=== PATIENT | female | born 1985 | race African-American/Black ===

== ENCOUNTER 2023-06-26 10:27 | Inpatient (IN) ==
[2023-06-26] MEDS ORDERED: PENICILLIN G POTASSIUM 6 MU in DEXTROSE 5% 250 ML IV STA (10:35)
[2023-06-26] MEDS ORDERED: LIDOCAINE 1% LOCAL 20 ML VIAL INFIL PRN (10:35)
[2023-06-26] MEDS ORDERED: OXYTOCIN 30 UNITS/500 ML BAG IV PRN (10:35)
--- NOTE | 2023-06-26 11:05 | History & Physical Report ---
Date of Service June 26, 2023 Assessment & Plan (1) 37 weeks gestation of : Plan: Admit, routine labs, PIH labs Misoprostol 25 mcg sublingual every 4 hours Plan to AROM, and then start oxytocin for augmentation when patient progressed Epidural if patient requests Anticipate spontaneous vaginal delivery (2) Gestational [-induced] hypertension without significant proteinuria, complicating childbirth: Plan: Will monitor and treat if severe range blood pressures, PIH labs currently pending (3) Diet controlled gestational diabetes mellitus (GDM) in third trimester: (4) Problem with heart muscle during in third trimester: (5) Positive GBS test: Plan: Will start IV penicillin prior to AROM, or immediately after Srom, or when patient is an active labor Admission and Anticipated Discharge Date Admission Date: June 26, 2023 History of Present Illness Chief Complaint: IOL for GTN at 37 weeks Primary Care Provider: Ryan Stokes MD Patient is a pleasant 37-year-old G1, P0 at 37 weeks and 0 days here for induction of labor for gestational hypertension at term, as she was diagnosed at 36 weeks. Patient denies contractions, leaking of fluid or vaginal bleeding. Notes good movement. Denies headache, blurry vision, right upper quadrant or epigastric pain. Otherwise feeling well. has been complicated by advanced maternal age, gestational hypertension, GBS positive, IVF , diet controlled gestational diabetes, thalassemia, and abnormal echocardiogram with cardiology consult in . Previous ultrasounds earlier in noted marginal insertion of umbilical cord Allergies Allergy/AdvReac Type Severity Reaction Status Date / Time No Known Allergies Allergy Unverified 04/17/23 19:38 Home Medications Medication Instructions Recorded Confirmed Type aspirin 81 mg tablet See Rx Instructions .Route .COMPLEX 04/17/23 06/26/23 History ferrous sulfate 325 mg (65 mg See Rx Instructions .Route .COMPLEX 04/17/23 06/26/23 History iron) tablet (iron) omega-3 fatty acids-vitamin E 1 cap PO QAM 04/17/23 06/26/23 History 1,000 mg capsule vit no.95-ferrous 1 tab PO QPM 04/17/23 06/26/23 History fumarate 28 mg-folic acid 800 mcg tablet () progesterone micronized 200 mg 200 mg PO HS 04/17/23 06/26/23 History capsule Patient History Medical History Advanced maternal age, 1st Fibroid Gestational diabetes Diet Controlled Gestational hypertension Marginal insertion of umbilical cord affecting management of mother Marginal insertion of umbilical cord affecting management of mother in third trimester Murmur Abnormal ECHO. Referred to Cardiology. 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 Beliefs That Will Affect Care: None marital status: Grant Tapia Current Living Situation: Spouse current occupation: Homemaker Other Information That Helps Us Care for You: No Feels Safe at Home: Yes Safety Concerns: Feels Safe At This Time Diet: regular Diet Comment: Gestational Diabetes Assistive Devices: None 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 Review of Systems All systems reviewed & are unremarkable except as noted in HPI & below Physical Exam Constitutional: WD/WN, vitals as above Respiratory: normal respiratory effort, lungs clear to auscultation Cardiovascular: RRR, no murmur, no edema Gastrointestinal (Abdomen): normal bowel sounds, soft, nontender, no hepatosplenomegaly gravid Genitourinary: External genitalia: Normal Vagina: Normal Cervix: 0/0/-3, soft posterior Results & Data Vital Signs (Past 12 Hours) Vital Signs Temp Pulse Resp BP 06/26/23 11:00 81 137/93 06/26/23 10:50 102 H 139/98 06/26/23 10:40 115 H 129/92 06/26/23 10:39 36.6 C 20 Laboratory Results Laboratory Results WBC 5.57 K/ul (4.8-10.8) 06/26/23 11:15 RBC 4.53 M/uL (4.20-5.40) 06/26/23 11:15 Hgb 10.4 g/dl (12.0-16.0) L 06/26/23 11:15 Hct 31.7 % (37.0-47.0) L 06/26/23 11:15 MCV 70.0 fL (80.0-100.0) L 06/26/23 11:15 MCH 23.0 pg (25.0-34.0) L 06/26/23 11:15 MCHC 32.8 g/dL (32.0-36.0) 06/26/23 11:15 RDW Std Deviation 35.8 fL (36.4-46.3) L 06/26/23 11:15 RDW Coeff of Cordelia 14.5 % (11.5-14.5) 06/26/23 11:15 Plt Count 170 K/uL (130-400) 06/26/23 11:15 MPV 12.0 fL (9.4-12.4) 06/26/23 11:15 Monitoring External Monitor heart tracing: Baseline 140, moderate variability, no accelerations, 1 variable deceleration Tocodynamometer Irritability
[2023-06-26 11:48] LABS: Hematocrit (blood only) 31.7 % (37.0-47.0); Hemoglobin 10.4 g/dl (12.0-16.0); Mean Corpuscular Hgb Conc 32.8 g/dL (32.0-36.0); Platelet Count 170 K/uL (130-400); RDW Coefficient of Variation 14.5 % (11.5-14.5); RDW Standard Deviation 35.8 fL (36.4-46.3); Red Blood Count 4.53 M/uL (4.20-5.40); White Blood Count 5.57 K/ul (4.8-10.8)
[2023-06-26 11:59] LABS: Albumin Level 3.2 gm/dl (3.4-5.0); BUN Creatinine Ratio 16.2 (10-20); Bilirubin,Total 0.4 mg/dl (0.2-1.0); Calcium 9.1 mg/dl (8.6-10.3); Creatinine Clr Calc Pharmacy 127.1 ml/min; Est GFR (African American) 121.7 ml/min; Globulin 3.1 gm/dl (2.5-4.0); Potassium 4.2 mmol/L (3.5-5.1); Total Protein 6.3 gm/dl (6.0-8.3)
[2023-06-26] MEDS: miSOPROStoL 25 MCG TAB SL SCH ×3 (12:20→20:03)
[2023-06-26 12:33] LABS: Total Protein Urine Random 13.6 mg/dl (0-11.9)
[2023-06-26 12:38] LABS: Protein Creatinine Ratio Urine 0.1 (0-0.2)
[2023-06-26] MEDS ORDERED: PENICILLIN G POTASSIUM 3 MU in DEXTROSE 5% 100 ML IV PRN (13:36)
--- NOTE | 2023-06-26 20:49 | Obstetrical Progress Note ---
Date of Service June 26, 2023 Assessment & Plan (1) 37 weeks gestation of : Plan: Status post 3 doses of misoprostol 25 mcg sublingual Continue every 4 hours Epidural if patient request Anticipate spontaneous vaginal delivery (2) Gestational [-induced] hypertension without significant proteinuria, complicating childbirth: Plan: PIH labs normal on admission Last blood pressure 126/93 (3) Diet controlled gestational diabetes mellitus (GDM) in third trimester: Plan: Checks every 2 hours (4) Positive GBS test: Plan: Plan to start penicillin G when in active labor or prior to AROM Admission and Anticipated Discharge Date Admission Date: June 26, 2023 Subjective Patient comfortable in bed, was able to eat dinner. Notes more cramping. No other complaints at this time Physical Exam Genitourinary: heart tracing: Baseline 140, moderate variability, positive accelerations, variable deceleration Tocometer: Contractions every 4 to 5 minutes Cervix: Outer os 3 cm, inner os 0/0/-3 Results & Data Vital Signs (Past 12 Hours) Vital Signs Temp Pulse Resp BP 06/26/23 19:12 37.0 C 18 06/26/23 19:15 84 126/93 06/26/23 18:41 93 H 126/81 06/26/23 16:03 79 130/91 06/26/23 14:24 36.6 C 77 16 149/88 H 06/26/23 11:00 81 137/93 06/26/23 10:50 102 H 139/98 06/26/23 10:40 115 H 129/92 06/26/23 10:39 36.6 C 20
[2023-06-27] MEDS: miSOPROStoL 25 MCG TAB SL SCH ×3 (04:19→16:43)
[2023-06-27] MEDS ORDERED: BUTORPHANOL TARTRATE 1 MG/ML VIAL IV ONE (05:31)
[2023-06-27] MEDS ORDERED: PENICILLIN G POTASSIUM 6 MU in DEXTROSE 5% 250 ML IV STA (05:46)
[2023-06-27] MEDS: LACTATED RINGER'S 1,000 ML IV PRN ×2 (05:50→20:59)
--- NOTE | 2023-06-27 06:56 | Obstetrical Progress Note ---
Date of Service June 27, 2023 Assessment & Plan (1) 37 weeks gestation of : Plan: Status post 4 doses of misoprostol 25 mcg sublingual Epidural if patient request Anticipate spontaneous vaginal delivery (2) Gestational [-induced] hypertension without significant proteinuria, complicating childbirth: Plan: PIH labs normal on admission Last blood pressure 130/76 (3) Diet controlled gestational diabetes mellitus (GDM) in third trimester: Plan: Checks every 2 hours (4) Positive GBS test: Plan: Patient currently started on IV penicillin for GBS prophylaxis Admission and Anticipated Discharge Date Admission Date: June 26, 2023 Subjective Patient is resting comfortably in bed at this time, after receiving IV Stadol Physical Exam Genitourinary: heart tracing: Baseline 140, minimal to moderate variability, positive accelerations, no decelerations, category 1 tracing Tocometer: Contractions every 2 to 5 minutes Cervix: 2/80/-2 checked by RN at 530 Results & Data Vital Signs (Past 12 Hours) Vital Signs Temp Pulse Resp BP Pulse Ox 06/26/23 19:12 37.0 C 06/27/23 06:49 68 97 06/27/23 06:44 76 99 06/27/23 06:39 79 99 06/27/23 06:34 69 97 06/27/23 06:29 70 96 06/27/23 06:24 78 97 06/27/23 06:19 75 97 06/27/23 06:14 73 97 06/27/23 06:09 70 96 06/27/23 06:04 79 98 06/27/23 05:59 80 97 06/27/23 05:54 91 H 98 06/27/23 05:49 84 98 06/27/23 05:16 76 130/76 06/27/23 04:02 85 136/94 06/27/23 02:00 06/27/23 02:00 37.1 C 06/27/23 02:02 87 136/91 06/26/23 23:30 18 06/26/23 23:30 37.1 C 06/26/23 23:20 84 135/89 06/26/23 21:06 93 H 136/90 06/26/23 19:15 84 126/93
--- NOTE | 2023-06-27 09:09 | Obstetrical Progress Note ---
Date of Service June 27, 2023 Assessment & Plan (1) 37 weeks gestation of : (2) Diet controlled gestational diabetes mellitus (GDM) in third trimester: (3) Gestational [-induced] hypertension without significant proteinuria, complicating childbirth: Plan: Date of Service June 27, 2023 Assessment & Plan (1) 37 weeks gestation of : Plan: Status post 4 doses of misoprostol 25 mcg sublingual Epidural if patient request Anticipate spontaneous vaginal delivery (2) Gestational [-induced] hypertension without significant proteinuria, complicating childbirth: Plan: PIH labs normal on admission Last blood pressure 130/76 (3) Diet controlled gestational diabetes mellitus (GDM) in third trimester: Plan: Checks every 2 hours (4) Positive GBS test: Plan: Patient currently started on IV penicillin for GBS prophylaxis Admission and Anticipated Discharge Date Admission Date: June 26, 2023 Subjective Patient is resting comfortably in bed at this time, after receiving IV Stadol Physical Exam Genitourinary: heart tracing: Baseline 140, good variability, positive accelerations, no decelerations, category 1 tracing Tocometer: Contractions every 2 to 5 minutes Cervix: 480/-1 (4) AMA (advanced maternal age) primigravida 35+: (5) Positive GBS test: Admission and Anticipated Discharge Date Admission Date: June 26, 2023 Supervising Physician Co-Signing Physician Notes Dr. Carisa Rascon MD Subjective routine check Physical Exam Constitutional: WD/WN, vitals as above Results & Data Vital Signs (Past 12 Hours) Vital Signs Temp Pulse Resp BP Pulse Ox 06/27/23 08:58 93 H 143/91 H 06/27/23 07:09 18 06/27/23 07:09 36.9 C 18 06/27/23 07:06 81 136/86 06/27/23 07:04 84 98 06/27/23 06:59 92 H 100 06/27/23 06:54 74 99 06/27/23 06:49 68 97 06/27/23 06:44 76 99 06/27/23 06:39 79 99 06/27/23 06:34 69 97 06/27/23 06:29 70 96 06/27/23 06:24 78 97 06/27/23 06:19 75 97 06/27/23 06:14 73 97 06/27/23 06:09 70 96 06/27/23 06:04 79 98 06/27/23 05:59 80 97 06/27/23 05:54 91 H 98 06/27/23 05:49 84 98 06/27/23 05:16 76 130/76 06/27/23 04:02 85 136/94 06/27/23 02:00 16 06/27/23 02:00 37.1 C 16 06/27/23 02:02 87 136/91 06/26/23 23:30 18 06/26/23 23:30 37.1 C 18 06/26/23 23:20 84 135/89
[2023-06-27] MEDS: PENICILLIN G POTASSIUM 3 MU in DEXTROSE 5% 100 ML IV PRN ×4 (10:04→22:43)
[2023-06-27] MEDS ORDERED: BUPIVACAINE 0.25% PF 30 ML VIAL ONE (14:28)
[2023-06-27] MEDS ORDERED: ePHEDrine sulfate 50 MG/ML AMP ONE (14:28)
[2023-06-27] MEDS ORDERED: LIDOCAINE 2%/EPINEPHRINE 1:200,000 20 ML PF ONE (14:28)
[2023-06-27] MEDS ORDERED: fentaNYL citrate PF 100 MCG/2 ML VIAL ONE (14:28)
[2023-06-27] MEDS ORDERED: SODIUM CHLORIDE 0.9% PF INJ 10 ML VIAL ONE (14:28)
[2023-06-27] MEDS ORDERED: fentaNYL 2MCG/ML ROPIVACAINE 1.25MG/ML 100 ML BAG EPI ONE (14:29)
[2023-06-27] MEDS ORDERED: NALOXONE HCL 1 MG in SODIUM CHLORIDE 0.9% 1000ML 1,000 ML IV PRN (14:39)
[2023-06-27] MEDS ORDERED: SODIUM CHLORIDE 0.9% PF INJ 10 ML VIAL EPI STA (14:39)
[2023-06-27] MEDS ORDERED: fentaNYL citrate PF 100 MCG/2 ML VIAL EPI STA (14:39)
[2023-06-27] MEDS ORDERED: fentaNYL citrate PF 100 MCG/2 ML VIAL EPI PRN (14:39)
[2023-06-27] MEDS ORDERED: ePHEDrine sulfate 50 MG/ML AMP IV PRN (14:39)
[2023-06-27] MEDS ORDERED: LIDOCAINE 2%/EPINEPHRINE 1:200,000 20 ML PF EPI STA (14:39)
[2023-06-27] MEDS ORDERED: fentaNYL 2MCG/ML ROPIVACAINE 1.25MG/ML 100 ML BAG EPI PRN (14:39)
[2023-06-27] MEDS ORDERED: SODIUM CHLORIDE 0.9% PF INJ 10 ML VIAL EPI PRN (14:39)
[2023-06-27] MEDS ORDERED: diphenhydrAMINE 50 MG/ML VIAL IV PRN (14:39)
[2023-06-27] MEDS ORDERED: NALOXONE HCL 0.4 MG/1 ML VIAL/CARP IV PRN (14:39)
[2023-06-27] MEDS ORDERED: NALBUPHINE HCL INJ 10 MG/ML AMP IV PRN (14:39)
[2023-06-27] MEDS ORDERED: BUPIVACAINE 0.25% PF 30 ML VIAL EPI STA (14:39)
[2023-06-27] MEDS ORDERED: LIDOCAINE 2% MPF LOCAL 5 ML VIAL EPI PRN (14:39)
[2023-06-27] MEDS ORDERED: BUPIVACAINE 0.25% PF 30 ML VIAL EPI PRN (14:39)
[2023-06-27] MEDS ORDERED: ROPIVACAINE 0.5% PF 5 MG/ML 20 ML VIAL EPI PRN (14:39)
[2023-06-27] MEDS ORDERED: ONDANSETRON INJ 2 MG/ML 2 ML VIAL IV PRN (14:39)
--- NOTE | 2023-06-27 14:41 | Anesthesiology Consultation ---
Date of Service June 27, 2023 Assessment & Plan (1) Encounter for pre-operative examination: Chart Review Chart Review: Patient NOT seen in Pre Admission Testing and Acceptable Risk for Labor Epidural Consults Requested none History Height/Weight Height: 5 ft 8 in Weight: 93.894 kg Allergies Allergy/AdvReac Type Severity Reaction Status Date / Time No Known Allergies Allergy Unverified 04/17/23 19:38 Medications Home Medications Medication Instructions Recorded Confirmed Last Taken aspirin 81 mg tablet See Rx Instructions .Route .COMPLEX 04/17/23 06/26/23 06/26/23 ferrous sulfate 325 mg (65 mg See Rx Instructions .Route .COMPLEX 04/17/23 06/26/23 06/25/23 iron) tablet (iron) omega-3 fatty acids-vitamin E 1 cap PO QAM 04/17/23 06/26/23 06/25/23 1,000 mg capsule vit no.95-ferrous 1 tab PO QPM 04/17/23 06/26/23 06/25/23 fumarate 28 mg-folic acid 800 mcg tablet () progesterone micronized 200 mg 200 mg PO HS 04/17/23 06/26/23 06/24/23 capsule Active Medications Generic Name Dose Route Start Last Admin Trade Name Freq PRN Reason Stop Dose Admin Lactated Ringer's 1,000 mls @ 125 mls/hr 06/26/23 10:35 06/27/23 14:25 Lr IV 06/28/23 10:34 999 mls/hr .Q8H PRN Infusion L&D Protocol Protocol Penicillin G Potassium 3 mu/ 106 mls @ 100 mls/hr 06/27/23 05:46 06/27/23 14:22 Dextrose IV 07/07/23 05:45 100 mls/hr Q4H PRN Administration GBS(+) Until Delivery Misoprostol 25 mcg 06/26/23 11:05 06/27/23 04:19 Misoprostol 25 Mcg Tab SL 07/26/23 11:04 25 mcg Q4 JAZMIN Administration Past Medical History Medical History (Updated 06/27/23 @ 14:41 by Adrien Stanford MD) Advanced maternal age, 1st Encounter for pre-operative examination Fibroid Gestational diabetes Diet Controlled Gestational hypertension Marginal insertion of umbilical cord affecting management of mother Marginal insertion of umbilical cord affecting management of mother in third trimester Murmur Abnormal ECHO. Referred to Cardiology. Exercise / Class Metabolic Activity II 4-5 Yardwork/Stairs/Walk up hill Past Family History Family History Father Myocardial infarction Past Surgical History Surgical History History of wisdom tooth extraction Hx of tonsillectomy Social History Smoking Status: Never smoker Hx Alcohol Use: No Hx Substance Use: No Physical Exam Vital Signs Last Vital Signs Temp 36.9 C 06/27/23 13:41 Pulse 111 H 06/27/23 15:10 Resp 18 06/27/23 13:41 BP 128/101 H 06/27/23 15:10 Pulse Ox 100 06/27/23 15:06 Testing Laboratory Results 06/26/23 11:15 06/26/23 11:15 06/27/23 06/27/23 06/27/23 13:11 12:22 08:16 POC Glucose 104 H 69 L* 83 06/27/23 04:03 POC Glucose 86
[2023-06-27] MEDS ORDERED: OXYTOCIN 30 UNITS/500 ML BAG IV PRN (14:58)
[2023-06-27] MEDS ORDERED: NURSING L&D Epidural Breakthrough Pain Update ONE (23:40)
--- NOTE | 2023-06-28 00:36 | Anesthesia Procedure Note ---
Date of Service June 28, 2023 Anesthesia Epidural Re-Dose Vital Signs Temp Pulse Resp BP Pulse Ox 36.5 C 104 H 20 133/85 100 06/27/23 23:00 06/28/23 00:31 06/28/23 00:00 06/28/23 00:31 06/28/23 00:31 Notes Pain Intensity: 9 Dilatation (cm): 8.0 Effacement (%): 100 After Epidural Re-Dose Mental Status: alert / awake / arousable and participated in evaluation Pain: adequately controlled Airway Patency, RR, SpO2: stable & adequate BP & HR: stable & adequate Additional Notes: gave 4ml 2% lido with epi mixed with 4ml of 0.5% ropivicaine in divided doses. vss. pain much improved.
[2023-06-28] MEDS: PENICILLIN G POTASSIUM 3 MU in DEXTROSE 5% 100 ML IV PRN (03:58)
[2023-06-28] MEDS ORDERED: BENZOCAINE 20% SPRY 85 APPLN/85 GM CAN EXT PRN (05:41)
[2023-06-28] MEDS ORDERED: DIPHTHERIA/TETANUS/PERTUSSIS Vaccine (Tdap, Age 7+yrs) 0.5mL SYR/VL IM ONE (05:41)
[2023-06-28] MEDS ORDERED: HYDROCORTISONE ACETATE 25 MG SUPP PR PRN (05:41)
[2023-06-28] MEDS ORDERED: OXYTOCIN 30 UNITS/500 ML BAG IV PRN (05:41)
--- NOTE | 2023-06-28 05:50 | Post Operative Brief Note ---
Immediate Post Op Note v1 Date of Surgery June 28, 2023 I identified the patient and participated in the time-out.: Yes Procedure pt fully dilated and pushing, placed in dorsal lithotomy position, prepped and draped in usual fashion, pt pushed for 20 min, delivered alive viable male in THANG position, with nuchal cord x 1 , reduced, placed the on the mothers abdomen, cord clamped and cut by the FOB. right labial laceration and second degree vaginal lacerations noted, repaired with 2.0 vicryl. placenta delivered spoantaenulsy an complete. IV Pitocin started. APGARS: 8, 9 at 1 and 5 min Blood loss: 350 cc delivery time; 5: 18 am, placenta delivered: 5: 20 am Surgeon Kecia Rascon MD Electric Deicer Inspector migue nurse Estimated Blood Loss 350 Findings Consistent with Post-Op Diagnosis Complications none Disposition Accompanied Patient To Recovery: No Disposition: L&D
--- NOTE | 2023-06-28 07:24 | Anesthesia Procedure Note ---
Date of Service June 28, 2023 Anesthesia Post Epidural Note Vital Signs Vital Signs: Temp Pulse Resp BP Pulse Ox 98.2 F 110 H 18 139/83 100 06/28/23 03:00 06/28/23 07:08 06/28/23 06:35 06/28/23 07:08 06/28/23 05:31 Pain Intensity Bilateral Abdomen: Pain Intensity: 9 Notes Mental Status: alert / awake / arousable and participated in evaluation Nausea / Vomiting: adequately controlled Pain: adequately controlled Airway Patency, RR, SpO2: stable & adequate BP & HR: stable & adequate Hydration State: stable & adequate Neuraxial Anesthesia: was administered and sensory block is resolving Anesthetic Complications: no major complications apparent and Pt Satisfied with anesthetic care Epidural: Removed without complications and With tip intact
[2023-06-28] MEDS: PRENATAL VITAMIN 1 TAB PO SCH (08:01)
[2023-06-28] MEDS: IBUPROFEN 600 MG TAB PO PRN ×3 (08:01→20:22)
[2023-06-28] MEDS: DOCUSATE SODIUM 100 MG CAP PO SCH ×2 (08:02→20:23)
[2023-06-29] MEDS: IBUPROFEN 600 MG TAB PO PRN ×3 (03:01→20:41)
[2023-06-29 06:22] LABS: Hematocrit (blood only) 22.4 % (37.0-47.0); Hemoglobin 7.7 g/dl (12.0-16.0); Mean Corpuscular Hemoglobin 23.8 pg (25.0-34.0); Mean Corpuscular Hgb Conc 34.4 g/dL (32.0-36.0); Mean Corpuscular Volume 69.1 fL (80.0-100.0); Mean Platelet Volume 12.6 fL (9.4-12.4); Platelet Count 171 K/uL (130-400); RDW Standard Deviation 35.1 fL (36.4-46.3); Red Blood Count 3.24 M/uL (4.20-5.40); White Blood Count 11.46 K/ul (4.8-10.8)
[2023-06-29] MEDS: DOCUSATE SODIUM 100 MG CAP PO SCH ×2 (08:01→20:41)
[2023-06-29] MEDS: PRENATAL VITAMIN 1 TAB PO SCH (08:01)
--- NOTE | 2023-06-29 08:18 | Obstetrical Progress Note ---
Date of Service June 29, 2023 Assessment & Plan (1) 37 weeks gestation of : Continue routine PP coarse H/H 7.7/22.4 IV iron today Repeat tomorrow, if <7 or symptomatic will transfuse pRBCs Anticipate d/c home tomorrow if doing well (2) Diet controlled gestational diabetes mellitus (GDM) in third trimester: (3) Gestational [-induced] hypertension without significant proteinuria, complicating childbirth: Last BP 106/68 BP check in 1 week in clinic Subjective Ambulation: ambulating normally Voiding: no voiding problems Passing Gas:: Yes Diet Tolerance:: regular diet Lochia:: Moderate Feeding Type:: breast feeding Current Pain Level(1-10): 0 Doing well, no issues. Had two small clots this AM. States she "passed out" going to toilet yesterday. Sriram any SOB, chest pain, dizziness at this time Physical Exam Constitutional WD/WN, vitals as above Respiratory normal respiratory effort, lungs clear to auscultation Cardiovascular RRR, no murmur, no edema Gastrointestinal (Abdomen) normal bowel sounds, soft, nontender, no hepatosplenomegaly Fundus below U Results & Data Vital Signs (Past 12 Hours) Vital Signs Temp Pulse Resp BP Pulse Ox O2 Del Method 06/29/23 02:56 36.7 C 89 18 106/68 98 Room Air 06/28/23 23:14 36.9 C 79 18 131/87 99 Room Air 06/28/23 21:30 149/88 H 06/28/23 20:30 36.5 C 82 18 177/107 H Laboratory Results Laboratory Results WBC 11.46 K/ul (4.8-10.8) H 06/29/23 05:59 RBC 3.24 M/uL (4.20-5.40) L 06/29/23 05:59 Hgb 7.7 g/dl (12.0-16.0) L 06/29/23 05:59 Hct 22.4 % (37.0-47.0) L 06/29/23 05:59 MCV 69.1 fL (80.0-100.0) L 06/29/23 05:59 MCH 23.8 pg (25.0-34.0) L 06/29/23 05:59 MCHC 34.4 g/dL (32.0-36.0) 06/29/23 05:59 RDW Std Deviation 35.1 fL (36.4-46.3) L 06/29/23 05:59 RDW Coeff of Cordelia 14.0 % (11.5-14.5) 06/29/23 05:59 Plt Count 171 K/uL (130-400) 06/29/23 05:59 MPV 12.6 fL (9.4-12.4) H 06/29/23 05:59 Sodium 135 mmol/L (136-145) L 06/26/23 11:15 Potassium 4.2 mmol/L (3.5-5.1) 06/26/23 11:15 Chloride 106 mmol/L (98-107) 06/26/23 11:15 Carbon Dioxide 22 mmol/L (21-32) 06/26/23 11:15 Anion Gap 7 (3-11) 06/26/23 11:15 BUN 12 mg/dl (6-23) 06/26/23 11:15 Creatinine 0.74 mg/dl (0.6-1.2) 06/26/23 11:15 Est Cr Clr Drug Dosing 127.1 ml/min 06/26/23 11:15 Est GFR ( Amer) 121.7 ml/min 06/26/23 11:15 Est GFR (Non-Af Amer) 105.0 ml/min 06/26/23 11:15 BUN/Creatinine Ratio 16.2 (10-20) 06/26/23 11:15 Glucose 93 mg/dl (70-99(Fasting)) 06/26/23 11:15 POC Glucose 82 mg/dl (70-99) 06/28/23 01:14 Calcium 9.1 mg/dl (8.6-10.3) 06/26/23 11:15 Total Bilirubin 0.4 mg/dl (0.2-1.0) 06/26/23 11:15 AST 35 U/L (13-39) 06/26/23 11:15 ALT 53 U/L (7-52) H 06/26/23 11:15 Alkaline Phosphatase 148 U/L (34-104) H 06/26/23 11:15 Total Protein 6.3 gm/dl (6.0-8.3) 06/26/23 11:15 Albumin 3.2 gm/dl (3.4-5.0) L 06/26/23 11:15 Globulin 3.1 gm/dl (2.5-4.0) 06/26/23 11:15 Albumin/Globulin Ratio 1.0 (0.9-2) 06/26/23 11:15 Ur Random Creatinine 95.0 mg/dl 06/26/23 11:12 U Random Total Protein 13.6 mg/dl (0-11.9) H 06/26/23 11:12 Protein/Creatinin Ratio 0.1 (0-0.2) 06/26/23 11:12 RPR Nonreactive (Nonreactive) 06/26/23 11:15 Blood Type A Positive 06/26/23 11:15 Antibody Screen NEGATIVE 06/26/23 11:15
[2023-06-29] MEDS ORDERED: IRON SUCROSE 300 MG in SODIUM CHLORIDE 0.9% 250 ML IV ONE (08:30)
[2023-06-29] MEDS ORDERED: bisacodyL 5 MG TABEC PO SCH (20:00)
[2023-06-30] MEDS ORDERED: bisacodyL 10 MG SUPP PR PRN (05:41)
[2023-06-30 07:11] LABS: Hematocrit (blood only) 19.7 % (37.0-47.0); Hemoglobin 6.7 g/dl (12.0-16.0)
[2023-06-30] MEDS ORDERED: SODIUM CHLORIDE 0.9% 250 ML IV PRN (07:14)
--- NOTE | 2023-06-30 07:51 | Obstetrical Progress Note ---
Date of Service June 30, 2023 Assessment & Plan (1) Anemia affecting first : Patient's status post 1 dose of IV iron yesterday Hemoglobin this morning 6.7, meets criteria for blood transfusion Blood consents were signed in the patient's room, she is agreeable We will give 1 unit of packed red blood cells, repeat hemoglobin 4 hours later Patient unsure if she wants to go home today versus tomorrow. (2) Normal course: Continue routine care Subjective Ambulation: ambulating normally Voiding: no voiding problems Passing Gas:: Yes Diet Tolerance:: regular diet Lochia:: Small Feeding Type:: breast feeding Current Pain Level(1-10): 0 Resting comfortably in bed at this time, no complaints Informed of critical hemoglobin this morning of 6.7 Physical Exam Constitutional WD/WN, vitals as above Respiratory normal respiratory effort, lungs clear to auscultation Cardiovascular RRR, no murmur, no edema Gastrointestinal (Abdomen) normal bowel sounds, soft, nontender, no hepatosplenomegaly Results & Data Vital Signs (Past 12 Hours) Vital Signs Temp Pulse Resp BP BP Pulse Ox O2 Del Method 06/30/23 07:17 36.6 C 89 16 132/87 Room Air 06/29/23 23:42 36.7 C 87 18 128/91 100 Room Air 06/29/23 20:40 36.7 C 90 18 119/85 Laboratory Results Laboratory Results WBC 11.46 K/ul (4.8-10.8) H 06/29/23 05:59 RBC 3.24 M/uL (4.20-5.40) L 06/29/23 05:59 Hgb 6.7 g/dl (12.0-16.0) L* 06/30/23 06:25 Hct 19.7 % (37.0-47.0) L* 06/30/23 06:25 MCV 69.1 fL (80.0-100.0) L 06/29/23 05:59 MCH 23.8 pg (25.0-34.0) L 06/29/23 05:59 MCHC 34.4 g/dL (32.0-36.0) 06/29/23 05:59 RDW Std Deviation 35.1 fL (36.4-46.3) L 06/29/23 05:59 RDW Coeff of Cordelia 14.0 % (11.5-14.5) 06/29/23 05:59 Plt Count 171 K/uL (130-400) 06/29/23 05:59 MPV 12.6 fL (9.4-12.4) H 06/29/23 05:59 Sodium 135 mmol/L (136-145) L 06/26/23 11:15 Potassium 4.2 mmol/L (3.5-5.1) 06/26/23 11:15 Chloride 106 mmol/L (98-107) 06/26/23 11:15 Carbon Dioxide 22 mmol/L (21-32) 06/26/23 11:15 Anion Gap 7 (3-11) 06/26/23 11:15 BUN 12 mg/dl (6-23) 06/26/23 11:15 Creatinine 0.74 mg/dl (0.6-1.2) 06/26/23 11:15 Est Cr Clr Drug Dosing 127.1 ml/min 06/26/23 11:15 Est GFR ( Amer) 121.7 ml/min 06/26/23 11:15 Est GFR (Non-Af Amer) 105.0 ml/min 06/26/23 11:15 BUN/Creatinine Ratio 16.2 (10-20) 06/26/23 11:15 Glucose 93 mg/dl (70-99(Fasting)) 06/26/23 11:15 POC Glucose 82 mg/dl (70-99) 06/28/23 01:14 Calcium 9.1 mg/dl (8.6-10.3) 06/26/23 11:15 Total Bilirubin 0.4 mg/dl (0.2-1.0) 06/26/23 11:15 AST 35 U/L (13-39) 06/26/23 11:15 ALT 53 U/L (7-52) H 06/26/23 11:15 Alkaline Phosphatase 148 U/L (34-104) H 06/26/23 11:15 Total Protein 6.3 gm/dl (6.0-8.3) 06/26/23 11:15 Albumin 3.2 gm/dl (3.4-5.0) L 06/26/23 11:15 Globulin 3.1 gm/dl (2.5-4.0) 06/26/23 11:15 Albumin/Globulin Ratio 1.0 (0.9-2) 06/26/23 11:15 Ur Random Creatinine 95.0 mg/dl 06/26/23 11:12 U Random Total Protein 13.6 mg/dl (0-11.9) H 06/26/23 11:12 Protein/Creatinin Ratio 0.1 (0-0.2) 06/26/23 11:12 RPR Nonreactive (Nonreactive) 06/26/23 11:15 Blood Type A Positive 06/26/23 11:15 Antibody Screen NEGATIVE 06/26/23 11:15 Crossmatch See Detail 06/30/23 07:19
[2023-06-30 07:57] LABS: Hematocrit (blood only) 19.6 % (37.0-47.0); Hemoglobin 6.7 g/dl (12.0-16.0)
[2023-06-30] MEDS: PRENATAL VITAMIN 1 TAB PO SCH (08:42)
[2023-06-30] MEDS: DOCUSATE SODIUM 100 MG CAP PO SCH ×2 (08:42→20:04)
[2023-06-30] MEDS: IBUPROFEN 600 MG TAB PO PRN (16:24)
[2023-06-30 16:27] LABS: Hematocrit (blood only) 26.3 % (37.0-47.0); Hemoglobin 8.9 g/dl (12.0-16.0)
[2023-06-30] MEDS: ACETAMINOPHEN 325 MG TAB PO PRN (20:03)
[2023-07-01 06:57] LABS: Hematocrit (blood only) 25.2 % (37.0-47.0); Hemoglobin 8.7 g/dl (12.0-16.0)
[2023-07-01] MEDS: PRENATAL VITAMIN 1 TAB PO SCH (09:09)
[2023-07-01] MEDS: IBUPROFEN 600 MG TAB PO PRN (09:10)
[2023-07-01] MEDS: DOCUSATE SODIUM 100 MG CAP PO SCH ×2 (09:10→21:10)
--- NOTE | 2023-07-01 10:04 | Obstetrical Progress Note ---
Date of Service July 01, 2023 Assessment & Plan (1) Anemia, : PPD #3 Pt doing well S/p PP transfusion Hgb is 8.7 Pt feels better Elevated BP this AM. no other symptoms- PIH labs ordered Subjective Ambulation: ambulating normally Voiding: no voiding problems Passing Gas:: Yes Diet Tolerance:: regular diet Lochia:: Small Feeding Type:: breast feeding Review of Systems All systems reviewed & are unremarkable except as noted in HPI & below Physical Exam Constitutional WD/WN, vitals as above well developed and well nourished Eyes PERRL, conjunctivae normal, anicteric sclerae Neck trachea midline, no thyromegaly Respiratory normal respiratory effort, lungs clear to auscultation Auscultation: no crackles, no rales and no wheezes Cardiovascular RRR, no murmur, no edema Gastrointestinal (Abdomen) normal bowel sounds, soft, nontender, no hepatosplenomegaly Uterus is below umbilicus Musculoskeletal no cyanosis or clubbing, extremities motor strength 5/5 Skin no rashes, warm and dry Neurologic patellar DTR's 2+ bilat, sensation intact Psychiatric A+Ox3, euthymic affect Genitourinary normal external appearance Results & Data Vital Signs (Past 12 Hours) Vital Signs Temp Pulse Resp BP Pulse Ox O2 Del Method 06/30/23 23:05 36.7 C 87 16 132/82 100 Room Air
[2023-07-01 10:52] LABS: Hematocrit (blood only) 25.5 % (37.0-47.0); Hemoglobin 8.5 g/dl (12.0-16.0); Mean Corpuscular Hemoglobin 24.6 pg (25.0-34.0); Mean Corpuscular Hgb Conc 33.3 g/dL (32.0-36.0); Mean Corpuscular Volume 73.7 fL (80.0-100.0); Mean Platelet Volume 12.5 fL (9.4-12.4); Nucleated RBC # (auto) 0.09 K/uL (0-0.12); Nucleated RBC % (auto) 0.9 %; Platelet Count 206 K/uL (130-400); RDW Coefficient of Variation 16.3 % (11.5-14.5); RDW Standard Deviation 40.6 fL (36.4-46.3); Red Blood Count 3.46 M/uL (4.20-5.40); White Blood Count 9.48 K/ul (4.8-10.8)
[2023-07-01 11:09] LABS: Albumin Globulin Ratio 1.1 (0.9-2); Albumin Level 2.8 gm/dl (3.4-5.0); BUN Creatinine Ratio 21.1 (10-20); Bilirubin,Total 0.3 mg/dl (0.2-1.0); Calcium 8.5 mg/dl (8.6-10.3); Creatinine Clr Calc Pharmacy 132.5 ml/min; Est GFR (African American) 127.9 ml/min; Est GFR (Non-African American) 110.4 ml/min; Globulin 2.6 gm/dl (2.5-4.0); Potassium 3.7 mmol/L (3.5-5.1); Total Protein 5.4 gm/dl (6.0-8.3)
[2023-07-01] MEDS ORDERED: MAG SULFATE 4GM BOLUS FROM BAG IV ONE (11:42)
[2023-07-01] MEDS ORDERED: LABETALOL HCL IV 5 MG/ML 20ML IV STA (11:42)
--- NOTE | 2023-07-01 11:42 | Progress Note ---
Date of Service July 01, 2023 Assessment & Plan (1) Preeclampsia in period: Plan: pt is s/p VD on 06/18/23 Transfused with 2 PRBC for PP Anemia This AM her Bp was elevated and PIH work up shows elevated LFT Pt denies headache, SOB, RUQ pain or visual changes Discussed above finding with pt Plan RT to L&D for PIH treatment Admission and Anticipated Discharge Date Admission Date: June 26, 2023 Results & Data Vital Signs (Past 12 Hours) Vital Signs Temp Pulse Resp BP O2 Del Method 07/01/23 08:40 36.7 C 88 20 154/96 H Room Air
[2023-07-01] MEDS: LACTATED RINGER'S 1,000 ML IV SCH (12:14)
[2023-07-01] MEDS: MAGNESIUM SULFATE / WTR 40 GM/1,000 ML BAG IV SCH (12:14)
[2023-07-01 12:44] LABS: Basophils # (auto) 0.06 K/uL (0-0.2); Basophils % (auto) 0.6 %; Eosinophils # (auto) 0.24 K/uL (0-0.50); Eosinophils % (auto) 2.5 %; Immature Granulocytes # (auto) 0.61 K/uL (0.01-0.20); Immature Granulocytes % (auto) 6.4 %; Lymphocytes % (auto) 16.9 %; Monocytes # (auto) 0.53 K/uL (0.11-0.59); Monocytes % (auto) 5.6 %; Neutrophils # (auto) 6.44 K/uL (1.40-6.50); Polychromasia 1+; Schistocytes Occasional; Spherocytes Occasional
[2023-07-01] MEDS: ACETAMINOPHEN 325 MG TAB PO PRN ×2 (13:18→21:06)
[2023-07-01] MEDS ORDERED: Nursing to Pharmacy Communication SCH (15:30)
[2023-07-01] MEDS: LABETALOL HCL 200 MG TAB PO SCH ×2 (16:07→21:03)
[2023-07-01] MEDS ORDERED: miSOPROStoL 200 MCG TAB PR ONE (19:39)
[2023-07-01] MEDS ORDERED: LABETALOL HCL 200 MG TAB PO SCH (21:00)
[2023-07-02] MEDS: LACTATED RINGER'S 1,000 ML IV SCH (00:49)
[2023-07-02] MEDS: IBUPROFEN 600 MG TAB PO PRN ×2 (03:39→08:51)
[2023-07-02 06:35] LABS: Basophils # (auto) 0.04 K/uL (0-0.2); Basophils % (auto) 0.5 %; Eosinophils % (auto) 2.5 %; Hematocrit (blood only) 23.6 % (37.0-47.0); Hemoglobin 7.9 g/dl (12.0-16.0); Immature Granulocytes # (auto) 0.37 K/uL (0.01-0.20); Immature Granulocytes % (auto) 4.7 %; Lymphocytes % (auto) 21.4 %; Mean Corpuscular Hemoglobin 24.6 pg (25.0-34.0); Mean Corpuscular Hgb Conc 33.5 g/dL (32.0-36.0); Mean Corpuscular Volume 73.5 fL (80.0-100.0); Monocytes # (auto) 0.67 K/uL (0.11-0.59); Monocytes % (auto) 8.4 %; Neutrophils # (auto) 4.97 K/uL (1.40-6.50); Neutrophils % (auto) 62.5 %; Nucleated RBC # (auto) 0.04 K/uL (0-0.12); Nucleated RBC % (auto) 0.5 %; Platelet Count 208 K/uL (130-400); RDW Coefficient of Variation 16.2 % (11.5-14.5); RDW Standard Deviation 39.6 fL (36.4-46.3); Red Blood Count 3.21 M/uL (4.20-5.40); White Blood Count 7.95 K/ul (4.8-10.8)
[2023-07-02 06:50] LABS: Albumin Globulin Ratio 1.1 (0.9-2); Albumin Level 2.6 gm/dl (3.4-5.0); Bilirubin,Total 0.2 mg/dl (0.2-1.0); Calcium 6.6 mg/dl (8.6-10.3); Creatinine Clr Calc Pharmacy 122.2 ml/min; Est GFR (African American) 115.9 ml/min; Globulin 2.3 gm/dl (2.5-4.0); Potassium 3.9 mmol/L (3.5-5.1); Total Protein 4.9 gm/dl (6.0-8.3)
[2023-07-02 06:51] LABS: Polychromasia 1+
[2023-07-02] MEDS: MAGNESIUM SULFATE / WTR 40 GM/1,000 ML BAG IV SCH (07:00)
[2023-07-02] MEDS: DOCUSATE SODIUM 100 MG CAP PO SCH (08:48)
[2023-07-02] MEDS: PRENATAL VITAMIN 1 TAB PO SCH (08:49)
[2023-07-02] MEDS: LABETALOL HCL 200 MG TAB PO SCH (08:49)
--- NOTE | 2023-07-02 10:00 | Obstetrical Progress Note ---
Date of Service July 02, 2023 Assessment & Plan (1) Preeclampsia in period: pt doing well Improved LFT's stable BP on labetalol plan d/c magnesium at noon Repeat labs at 16;00hrs consider d/c if pt continues tpo do well consider PM Subjective Ambulation: ambulating normally Voiding: no voiding problems Passing Gas:: Yes Diet Tolerance:: regular diet Lochia:: Small Feeding Type:: breast feeding Review of Systems All systems reviewed & are unremarkable except as noted in HPI & below Physical Exam Constitutional WD/WN, vitals as above well developed and well nourished Eyes PERRL, conjunctivae normal, anicteric sclerae Neck trachea midline, no thyromegaly Respiratory normal respiratory effort, lungs clear to auscultation Auscultation: no crackles, no rales and no wheezes Cardiovascular RRR, no murmur, no edema Gastrointestinal (Abdomen) normal bowel sounds, soft, nontender, no hepatosplenomegaly Uterus is below umbilicus Musculoskeletal no cyanosis or clubbing, extremities motor strength 5/5 Skin no rashes, warm and dry Neurologic patellar DTR's 2+ bilat, sensation intact Psychiatric A+Ox3, euthymic affect Genitourinary normal external appearance Results & Data Vital Signs (Past 12 Hours) Vital Signs Temp Pulse Resp BP Pulse Ox 07/02/23 09:00 20 07/02/23 08:00 18 07/02/23 07:00 36.6 C 20 07/02/23 07:00 20 07/02/23 05:03 18 07/02/23 04:03 18 07/02/23 03:05 16 07/02/23 02:03 18 07/02/23 01:03 18 07/02/23 00:03 16 07/02/23 00:03 16 07/01/23 23:05 36.7 C 18 07/01/23 23:05 18 07/01/23 22:03 18 07/01/23 22:03 18 07/02/23 09:52 85 100 07/02/23 09:47 87 100 07/02/23 09:42 87 100 07/02/23 09:37 90 100 07/02/23 09:32 98 H 100 07/02/23 09:27 88 99 07/02/23 09:22 89 99 07/02/23 09:17 92 H 99 07/02/23 09:12 91 H 100 07/02/23 09:07 91 H 100 07/02/23 09:02 98 H 98 07/02/23 08:57 92 H 100 07/02/23 08:52 92 H 100 07/02/23 08:47 95 H 100 07/02/23 08:42 87 100 07/02/23 08:37 83 100 07/02/23 08:32 85 100 07/02/23 08:27 80 100 07/02/23 08:22 87 100 07/02/23 08:17 84 100 07/02/23 08:12 86 100 07/02/23 08:07 82 100 07/02/23 08:03 83 134/88 07/02/23 08:02 83 99 07/02/23 07:57 84 100 07/02/23 07:52 86 98 07/02/23 07:47 80 100 07/02/23 07:42 84 99 07/02/23 07:37 80 99 07/02/23 07:32 82 98 07/02/23 07:27 78 99 07/02/23 07:22 83 97 07/02/23 07:17 79 98 07/02/23 07:12 82 99 07/02/23 07:07 80 100 07/02/23 07:04 82 130/78 07/02/23 07:02 89 100 07/02/23 06:57 83 99 07/02/23 06:52 80 99 07/02/23 06:47 78 99 07/02/23 06:42 79 99 07/02/23 06:37 81 99 07/02/23 06:32 82 100 07/02/23 06:27 82 100 07/02/23 06:22 86 100 07/02/23 06:17 82 99 07/02/23 06:12 81 100 07/02/23 06:07 85 100 07/02/23 06:03 83 18 130/86 07/02/23 06:02 80 98 07/02/23 05:57 80 100 07/02/23 05:52 79 100 07/02/23 05:47 82 100 07/02/23 05:42 88 100 07/02/23 05:37 82 100 07/02/23 05:32 80 99 07/02/23 05:27 80 97 07/02/23 05:22 79 99 07/02/23 05:17 79 98 07/02/23 05:12 80 100 07/02/23 05:07 82 98 07/02/23 05:03 86 16 109/65 07/02/23 05:02 81 99 07/02/23 04:57 80 98 07/02/23 04:52 86 99 07/02/23 04:47 81 98 07/02/23 04:42 83 96 07/02/23 04:37 80 97 07/02/23 04:32 80 98 07/02/23 04:27 82 97 07/02/23 04:22 79 98 07/02/23 04:17 79 98 07/02/23 04:12 81 98 07/02/23 04:07 80 98 07/02/23 04:03 78 118/71 07/02/23 04:02 79 99 07/02/23 03:57 77 99 07/02/23 03:52 78 98 07/02/23 03:47 81 100 07/02/23 03:42 81 100 07/02/23 03:37 84 99 07/02/23 03:32 80 98 07/02/23 03:27 78 97 07/02/23 03:22 78 98 07/02/23 03:17 81 98 07/02/23 03:12 79 97 07/02/23 03:07 80 97 07/02/23 03:03 83 16 120/78 07/02/23 03:02 81 98 07/02/23 02:57 83 97 07/02/23 02:52 84 100 07/02/23 02:47 82 99 07/02/23 02:42 82 98 07/02/23 02:37 84 97 07/02/23 02:32 85 95 07/02/23 02:27 94 07/02/23 02:27 86 07/02/23 02:27 83 94 07/02/23 02:22 87 98 07/02/23 02:17 85 97 07/02/23 02:12 81 96 07/02/23 02:07 80 97 07/02/23 02:04 78 18 110/67 07/02/23 02:02 80 96 07/02/23 01:57 81 98 07/02/23 01:52 82 98 07/02/23 01:47 86 98 07/02/23 01:42 85 97 07/02/23 01:37 92 H 100 07/02/23 01:32 81 97 07/02/23 01:27 84 98 07/02/23 01:22 86 97 07/02/23 01:17 81 97 07/02/23 01:12 82 97 07/02/23 01:07 84 98 07/02/23 01:03 83 16 122/58 L 07/02/23 01:02 83 98 07/02/23 00:57 87 99 07/02/23 00:52 88 99 07/02/23 00:47 91 H 100 07/02/23 00:42 89 99 07/02/23 00:37 90 99 07/02/23 00:32 87 99 07/02/23 00:27 89 98 07/02/23 00:22 86 100 07/02/23 00:17 90 99 07/02/23 00:12 88 98 07/02/23 00:07 93 H 96 07/02/23 00:03 83 117/60 07/02/23 00:02 85 98 07/01/23 23:57 85 96 07/01/23 23:52 87 98 07/01/23 23:47 86 96 07/01/23 23:42 85 97 07/01/23 23:37 84 98 07/01/23 23:32 83 97 07/01/23 23:27 88 98 07/01/23 23:22 87 97 07/01/23 23:17 88 98 07/01/23 23:12 90 100 07/01/23 23:07 89 97 07/01/23 23:03 90 126/74 07/01/23 23:02 95 H 99 07/01/23 22:57 85 97 07/01/23 22:52 84 97 07/01/23 22:47 83 98 07/01/23 22:42 82 99 07/01/23 22:37 96 H 100 07/01/23 22:32 84 97 07/01/23 22:27 88 100 07/01/23 22:22 89 100 07/01/23 22:17 93 H 99 07/01/23 22:12 87 98 07/01/23 22:08 89 127/67 07/01/23 22:07 98 07/01/23 22:07 90 07/01/23 22:07 92 H 123/74 07/01/23 22:02 93 H 98
[2023-07-02 16:57] LABS: Basophils # (auto) 0.04 K/uL (0-0.2); Basophils % (auto) 0.5 %; Eosinophils # (auto) 0.23 K/uL (0-0.50); Eosinophils % (auto) 2.9 %; Hematocrit (blood only) 25.1 % (37.0-47.0); Hemoglobin 8.4 g/dl (12.0-16.0); Immature Granulocytes # (auto) 0.33 K/uL (0.01-0.20); Immature Granulocytes % (auto) 4.2 %; Lymphocytes # (auto) 1.39 K/uL (1.2-3.4); Lymphocytes % (auto) 17.8 %; Mean Corpuscular Hemoglobin 24.7 pg (25.0-34.0); Mean Corpuscular Hgb Conc 33.5 g/dL (32.0-36.0); Mean Corpuscular Volume 73.8 fL (80.0-100.0); Mean Platelet Volume 10.8 fL (9.4-12.4); Monocytes # (auto) 0.68 K/uL (0.11-0.59); Monocytes % (auto) 8.7 %; Neutrophils # (auto) 5.16 K/uL (1.40-6.50); Neutrophils % (auto) 65.9 %; Nucleated RBC # (auto) 0.03 K/uL (0-0.12); Nucleated RBC % (auto) 0.4 %; Platelet Count 237 K/uL (130-400); RDW Coefficient of Variation 16.6 % (11.5-14.5); RDW Standard Deviation 39.6 fL (36.4-46.3); White Blood Count 7.83 K/ul (4.8-10.8)
[2023-07-02 17:12] LABS: Albumin Globulin Ratio 1.1 (0.9-2); Albumin Level 2.7 gm/dl (3.4-5.0); BUN Creatinine Ratio 14.3 (10-20); Bilirubin,Total 0.2 mg/dl (0.2-1.0); Calcium 6.8 mg/dl (8.6-10.3); Creatinine Clr Calc Pharmacy 134.4 ml/min; Est GFR (African American) 130.1 ml/min; Est GFR (Non-African American) 112.3 ml/min; Globulin 2.5 gm/dl (2.5-4.0); Potassium 3.8 mmol/L (3.5-5.1); Total Protein 5.2 gm/dl (6.0-8.3)
--- NOTE | 2023-07-02 17:42 | Discharge Summary ---
Date of Service July 02, 2023 Admission HPI Per Admitting Provider Patient is a pleasant 37-year-old G1, P0 at 37 weeks and 0 days here for induction of labor for gestational hypertension at term, as she was diagnosed at 36 weeks. Patient denies contractions, leaking of fluid or vaginal bleeding. Notes good movement. Denies headache, blurry vision, right upper quadrant or epigastric pain. Otherwise feeling well. has been complicated by advanced maternal age, gestational hypertension, GBS positive, IVF , diet controlled gestational diabetes, thalassemia, and abnormal echocardiogram with cardiology consult in . Previous ultrasounds earlier in noted marginal insertion of umbilical cord Discharge Data Consultations 06/26/23 10:36 Consult Anesthesiology Stat
== END 2023-07-02 18:45 | disposition home or self-care (01) | DRG 807 ==
LOC: 4S1 10:27 → 4E2 06-28 09:25 → 4S1 07-01 11:45